=== PATIENT | male | born 1960 | race Two or more races ===

== ENCOUNTER 2024-10-20 09:37 | Inpatient (IN) | payer OTHER ==
[~2024-10-20] VITALS: Ht 182.9 cm; Wt 90.7 kg
[2024-10-20] MEDS ORDERED: SYNTHROID125 MCG PO (10:33)
[2024-10-20] MEDS ORDERED: CRESTOR40 MG PO (10:34)
[2024-10-20] MEDS ORDERED: AMLODIPINE-OLM1 EAC2 PO (10:34)
[2024-10-20] MEDS ORDERED: AVODART0.5 MG PO (10:34)
[2024-10-20] MEDS ORDERED: UROXATRAL10 MG PO (10:35)
[2024-10-20] MEDS ORDERED: UCERIS9 MG PO (10:35)
[2024-10-20] MEDS ORDERED: CALCIUM500 M2 PO (10:36)
[2024-10-20] MEDS ORDERED: CEFTRIAXONE SODIUM 2,000 MG VIAL IV ONE (11:00)
[2024-10-20] MEDS ORDERED: ACETAMINOPHEN WITH CODEINE 1 UDTAB TABLET PO STA (11:00)
[2024-10-20] MEDS ORDERED: 0.9 % SODIUM CHLORIDE 1,000 ML IV SCH ×2 (11:00→18:00)
[2024-10-20 12:00] LABS: HEMATOCRIT 42.5 % (39.0-48.0); HEMOGLOBIN 13.9 g/dL (13-16.00); MEAN CORPUSCULAR HEMOGLOBIN 29.1 pg (27.00-32.0); MEAN CORPUSCULAR HGB CONC 32.7 g/dl (32.0-36.0); PLATELET COUNT 196 K/uL (150-450); RED BLOOD COUNT 4.77 M/uL (4.00-6.00); RED CELL DISTRIBUTION WIDTH 13.4 % (11.5-14.5)
[2024-10-20 12:18] LABS: PH,URINE 5.5 (5.0-8.0); URINE APPEARANCE Clear; URINE BILIRRUBIN Negative (NEGATIVE); URINE COLOR Yellow; URINE GLUCOSE Negative (NEGATIVE); URINE KETONE Negative (NEGATIVE); URINE LEUKOCYTE Negative; URINE NITRATE Negative; URINE PROTEIN Negative (NEGATIVE); URINE UROBILINOGEN 0.2 E.U./dl
[2024-10-20 12:21] LABS: URINE RBC 8.6 uL (0.0-20.8)
[2024-10-20 12:30] LABS: URINE BACTERIA 2.4 uL (0.0-1933); URINE CAST 0.29 uL (0.0-1.40); URINE EPITHELIAL CELLS 0.7 uL (0.0-38.8); URINE WBC 1.7 uL (0.0-23.2)
[2024-10-20 12:31] LABS: URINE BLOOD Trace
[2024-10-20 13:26] LABS: ALBUMIN 3.6 gm/dL (3.4-5.0); ALKALINE PHOSPHATASE 64 U/L (50-136); ALT/SGPT 18 U/L (12-78); ANION GAP 9 (10.0-20.0); AST/SGOT 18 U/L (15-37); BILIRUBIN TOTAL 0.38 mg/dL (0.3-1.2); BILIRUBIN,CONJUGATED < 0.10 mg/dL (0.0-0.2); BILIRUBIN,UNCONJUGATED 0.28 mg/dL (0.0-0.6); BLOOD UREA NITROGEN 12 mg/dL (7-18); BUN CREA RATIO 14 (7.0-25.0); CALCIUM 9.3 mg/dL (8.5-10.1); CARBON DIOXIDE 28 mEq/L (21-32); CHLORIDE 110 mmol/L (98-107); CREATININE SERUM 0.86 mg/dL (0.70-1.30); GFR 89.25; GLUCOSE FASTING 100 mg/dL (65-100); OSMOLALITY SERUM 285 MOSM/KG (275-295); POTASSIUM 4.09 mEq/L (3.5-5.1); SODIUM 143 mmol/L (136-145); TOTAL PROTEIN 7.1 gm/dL (6.4-8.2)
[2024-10-20] MEDS ORDERED: ACETAMINOPHEN 500 MG GEL..CAP PO PRN (18:00)
[2024-10-20] MEDS ORDERED: PIPERACILLIN/TAZOBACTAM SODIUM 3.375 GM in 0.9 % SODIUM CHLORIDE 100 ML IV SCH (18:00)
[2024-10-20 23:29] LABS: INR 0.94; PARTIAL THROMBOPLASTIN TIME 29.2 SECONDS (22.0-34.0); PROTHROMBIN TIME 10.3 SECONDS (9.0-11.5)
[2024-10-21 04:00] VITALS: BP 130/73
[2024-10-21] MEDS ORDERED: LEVOTHYROXINE SODIUM 125 MCG TABLET PO SCH (06:00)
[2024-10-21 08:00] VITALS: BP 168/92; O2SAT 96
[2024-10-21] MEDS ORDERED: ENOXAPARIN SODIUM 40 MG/0.4 ML SYRINGE SUBCUTANEO SCH (09:00)
[2024-10-21] MEDS ORDERED: TAMSULOSIN HCL 0.4 MG CAP PO SCH (09:00)
[2024-10-21] MEDS ORDERED: AMLODIPINE BESYLATE 5 MG TABLET PO SCH (09:00)
[2024-10-21 16:00] VITALS: BP 178/95
[2024-10-22 03:32] VITALS: BP 111/72; O2SAT 95
[2024-10-22 08:46] VITALS: BP 165/84; O2SAT 97
[2024-10-22 12:42] LABS: HEMATOCRIT 42.2 % (39.0-48.0); MEAN CELL VOLUME 88.8 fL (80.0-100.00); MEAN CORPUSCULAR HEMOGLOBIN 29.5 pg (27.00-32.0); MEAN CORPUSCULAR HGB CONC 33.3 g/dl (32.0-36.0); PLATELET COUNT 240 K/uL (150-450); RED BLOOD COUNT 4.76 M/uL (4.00-6.00); RED CELL DISTRIBUTION WIDTH 13.9 % (11.5-14.5)
[2024-10-22 13:40] LABS: ALBUMIN 3.7 gm/dL (3.4-5.0); BILIRUBIN TOTAL 0.5 mg/dL (0.3-1.2); CALCIUM 8.8 mg/dL (8.5-10.1); CREATININE SERUM 0.91 mg/dL (0.70-1.30); GFR 83.61; GLOBULINA 3.6 G/DL (2.4-3.5); POTASSIUM 4.14 mEq/L (3.5-5.1); TOTAL PROTEIN 7.3 gm/dL (6.4-8.2)
== END 2024-10-22 17:03 | disposition home or self-care (01) | DRG 603 ==
LOC: ER 09:40 → MEDI 18:56
PROVIDERS: General Practice; Internal Medicine; ADMIT Internal Medicine; ATTEND Internal Medicine
PROC: B54DZZZ Ultrasonography of Bilateral Lower Extremity Veins (ICD-10-PCS; principal; 2024-10-20)
PROC: B44HZZZ Ultrasonography of Bilateral Lower Extremity Arteries (ICD-10-PCS; 2024-10-20)
DX: L03.116 Cellulitis of left lower limb (principal); M79.662 Pain in left lower leg; I10 Essential (primary) hypertension; G47.33 Obstructive sleep apnea (adult) (pediatric); E03.9 Hypothyroidism, unspecified; Z88.6 Allergy status to analgesic agent

== ENCOUNTER 2025-05-03 22:04 | Emergency (ER) | payer OTHER ==
[~2025-05-03] VITALS: Ht 182.9 cm; Wt 102.1 kg
[~2025-05-03 22:04] MED LIST: AMLODIPINE-OLM1 EAC2 PO; AVODART0.5 MG PO; CALCIUM500 M2 PO; CRESTOR40 MG PO; SYNTHROID125 MCG PO; UCERIS9 MG PO; UROXATRAL10 MG PO
[2025-05-04] MEDS ORDERED: ALBUTEROL SULFATE 3 ML/2.5 MG AMPUL.NEB IH STA (00:45)
[2025-05-04] MEDS ORDERED: ALBUTEROL2.5 MG/3 M IH (01:34)
== END 2025-05-04 02:23 ==
LOC: ER 22:04
DX: R06.02 Shortness of breath (principal); R05.9 Cough, unspecified; I10 Essential (primary) hypertension; Z88.6 Allergy status to analgesic agent